=== PATIENT | female | born 1995 | race Caucasian/White ===

== ENCOUNTER 2017-07-08 11:57 | Emergency (ER) | payer BC ==
[2017-07-08 12:42] VITALS: BP 139/81
--- NOTE | 2017-07-08 14:02 | UC ---
Skin Complaint HPI - HPI Summary HPI Summary: THREE WEEKS OF WORSENING CHAPPED LIPS, MOSTLY UPPER LIP (FRANCK SCALING AROUND IDALMIS BORDER). HAS RECENTLY BECOME VEGETARIAN; NEW FOODS: MORNING STAR MEATLESS SUPPLIMENT. NO (RETINOID) ACNE MEDICATION. NO ALISIA, CITRUS, OR CINNAMON. NO EXCESSIVE TIME OUTDOORS OR SUN EXPOSURE. NO HISTORY OR FAMILY HISTORY OF LUPUS OR OF CROHNS. NO PAIN OR CRACKING OF CORNERS OF MOUTH. NO FEVER. - History of Current Complaint Chief Complaint: UCSkin Time Seen by Provider: 07/08/17 12:48 Stated Complaint: LIP COMPLAINT Hx Obtained From: Patient Hx Last Menstrual Period: 06/08/17 Onset/Duration: Gradual Onset, Lasting Weeks, Still Present Skin Exposure Onset/Duration: Weeks Ago Onset Severity: Mild Current Severity: Mild Pain Intensity: 4 Pain Scale Used: 0-10 Numeric Location: Discrete Character: Swelling Aggravating: Touch Alleviating: OTC Creams/Salves Associated Signs & Symptoms: Positive: Tenderness. Negative: Nausea, Vomiting, Fever, Chills, Cough, Hoarseness, Throat Tightening, Rash, Bruising, Red Streaks , Joint Swelling Related History: Possible Reaction to: Environmental Exposure - Allergy/Home Medications Allergies/Adverse Reactions: Allergies Allergy/AdvReac Type Severity Reaction Status Date / Time No Known Allergies Allergy Verified 07/08/17 12:42 Home Medications: Home Medications Norethindrone & Eth Estradiol [Dasetta ] 1 tab PO DAILY 07/08/17 [History Confirmed 07/08/17] Review of Systems Constitutional: Negative Skin: Rash - FRANCK SCALING SUPERIOR AND INFERIOR LIPS AT IDALMIS BORDERS. Eyes: Negative ENT: Negative Respiratory: Negative Cardiovascular: Negative Gastrointestinal: Negative Genitourinary: Negative Motor: Negative Neurovascular: Negative Musculoskeletal: Negative Neurological: Negative Psychological: Negative All Other Systems Reviewed And Are Negative: Yes PMH/Surg Hx/FS Hx/Imm Hx Previously Healthy: Yes - Surgical History Surgical History: None - Family History Known Family History: Negative: Other - LUPUS, N CROHNSNO - Social History Occupation: Student Lives: With Family Alcohol Use: Weekly Substance Use Type: None Smoking Status (MU): Never Smoked Tobacco Physical Exam Triage Information Reviewed: Yes Appearance: Well-Appearing, No Pain Distress, Well-Nourished Vital Signs: Initial Vital Signs Temp 99.2 F 07/08/17 12:34 Pulse 80 07/08/17 12:34 Resp 14 07/08/17 12:34 BP 139/81 07/08/17 12:34 Pulse Ox 100 07/08/17 12:34 Vital Signs Reviewed: Yes Eye Exam: Normal ENT: Positive: Hearing grossly normal, Pharynx normal, TMs normal, Other: - FRANCK SCALING SUPERIOR AND INFERIOR LIPS AT IDALMIS BORDERS. Dental Exam: Normal Neck exam: Normal Neck: Positive: Supple, Nontender, No Lymphadenopathy Respiratory Exam: Normal Respiratory: Positive: Chest non-tender, Lungs clear, Normal breath sounds, No respiratory distress, No accessory muscle use Cardiovascular Exam: Normal Cardiovascular: Positive: RRR, No Murmur, Pulses Normal, Brisk Capillary Refill Abdominal Exam: Normal Musculoskeletal Exam: Normal Neurological Exam: Normal Psychological Exam: Normal Skin: Positive: rashes - FRANCK SCALING SUPERIOR AND INFERIOR LIPS AT IDALMIS BORDERS. Course/Dx - Differential Diagnoses - Skin Complaint Differential Diagnoses: Allergic Reaction, Contact Dermatitis, Eczema, Impetigo , Tinea, Urticaria, Viral Exanthem, Other - CHEILITIS - Diagnoses Provider Diagnoses: CHEILITIS; POSSIBLE IMPETIGO Discharge - Discharge Plan Condition: Stable Disposition: HOME Prescriptions: Mupirocin 2% OINT* [Bactroban 2 % Oint*] 1 applic TOPICAL TID #1 tube Patient Education Materials: Impetigo (ED), Dyshidrotic Eczema (ED) Referrals: [facility] [place] [facility] [Outside] Juan Burnett MD [Medical Doctor] - Gio MONTES DE OCA,Patrick Sim [Medical Doctor] -
== END 2017-07-08 13:29 | disposition home or self-care (01) ==
LOC: UCCORT 11:57
DX: K13.0 Diseases of lips (principal); K12.2 Cellulitis and abscess of mouth
CPT/HCPCS: 99202; G0463